=== PATIENT | male | born 1960 | race Caucasian/White ===

== ENCOUNTER 2018-11-20 05:57 | Day surgery (SDC) | payer OTHER ==
[~2018-11-20 05:57] MED LIST: CEFAZOLIN 2 GM/50 ML (PMX) 50 ML IVPB
[2018-11-20] MEDS: LACTATED RINGER'S 1,000 ML IV (07:24)
[2018-11-20] MEDS ORDERED: PROPOFOL 20 ML (07:29)
[2018-11-20] MEDS ORDERED: FENTAnyl 50 MCG/ML VIAL (07:29)
[2018-11-20] MEDS ORDERED: MIDAZOLAM 1 MG/ML 2 ML INJ (07:29)
[2018-11-20] MEDS: IOHEXOL 300MG/ML 30 ML BTL (08:02)
[2018-11-20] MEDS ORDERED: LABETALOL HCL 20MG INJ IV (08:30)
[2018-11-20] MEDS ORDERED: OXYCODONE/ACETAMINOPHEN (5/325) TAB PO (08:30)
[2018-11-20] MEDS ORDERED: HYDROmorphONE 1 MG/5 ML IV SYRINGE IV ×3 (08:30)
[2018-11-20] MEDS ORDERED: METOCLOPRAMIDE 10 MG INJ IV (08:30)
[2018-11-20] MEDS ORDERED: FENTAnyl 50 MCG/ML VIAL IV ×3 (08:30)
[2018-11-20] MEDS ORDERED: MEPERIDINE 25 MG INJ IV (08:30)
[2018-11-20] MEDS ORDERED: DIPHENHYDRAMINE 50 MG INJ IV (08:30)
[2018-11-20] MEDS ORDERED: EPHEDrine 25 MG/5 ML SYG IV (08:30)
[2018-11-20] MEDS ORDERED: ONDANSETRON 4 MG INJ IV (08:30)
[2018-11-20] MEDS ORDERED: hydrALAzine 20 MG INJ IV (08:30)
[2018-11-20] MEDS ORDERED: ROCURONIUM 50 MG INJ (08:44)
[2018-11-20] MEDS ORDERED: ONDANSETRON 4 MG INJ (08:44)
[2018-11-20] MEDS ORDERED: KETOROLAC 30 MG INJ (08:45)
[2018-11-20] MEDS ORDERED: SUGAMMADEX SODIUM 200 MG/2 ML VIAL IV (08:45)
[2018-11-20] MEDS ORDERED: METOCLOPRAMIDE 10 MG INJ (08:45)
[2018-11-20] MEDS ORDERED: DEXAMETHASONE 4 MG/ML 5 ML INJ (08:45)
== END 2018-11-20 10:27 | disposition home or self-care (01) ==
LOC: SDS 05:57
DX: N20.0 Calculus of kidney (principal); I10 Essential (primary) hypertension; E78.5 Hyperlipidemia, unspecified; Z79.82 Long term (current) use of aspirin
CPT/HCPCS: 52356

== ENCOUNTER 2019-01-01 08:28 | Day surgery (SDC) | payer OTHER ==
[2019-01-01] MEDS ORDERED: METOCLOPRAMIDE 10 MG INJ (10:30)
[2019-01-01] MEDS ORDERED: ALBUTEROL 0.083% (NEB) 2.5 MG/3 ML AMP HHN (10:30)
[2019-01-01] MEDS ORDERED: LABETALOL HCL 20MG INJ IV (10:30)
[2019-01-01] MEDS ORDERED: OXYCODONE/ACETAMINOPHEN (5/325) TAB PO (10:30)
[2019-01-01] MEDS ORDERED: DIPHENHYDRAMINE 50 MG INJ IV (10:30)
[2019-01-01] MEDS ORDERED: ONDANSETRON 4 MG INJ IV (10:30)
[2019-01-01] MEDS ORDERED: PROPOFOL 20 ML (10:30)
[2019-01-01] MEDS ORDERED: hydrALAzine 20 MG INJ IV (10:30)
[2019-01-01] MEDS ORDERED: KETOROLAC 30 MG INJ IV (10:30)
[2019-01-01] MEDS ORDERED: FENTAnyl 50 MCG/ML VIAL IV ×3 (10:30)
[2019-01-01] MEDS ORDERED: CEFAZOLIN 1 GM INJ (10:30)
[2019-01-01] MEDS ORDERED: MEPERIDINE 25 MG INJ IV (10:30)
[2019-01-01] MEDS ORDERED: HYDROmorphONE 1 MG/5 ML IV SYRINGE IV ×3 (10:30)
[2019-01-01] MEDS: OXYCODONE/ACETAMINOPHEN (5/325) TAB PO (12:14)
== END 2019-01-01 13:12 | disposition home or self-care (01) ==
LOC: SDS 08:28
DX: N20.0 Calculus of kidney (principal); I10 Essential (primary) hypertension; I25.10 Atherosclerotic heart disease of native coronary artery without angina pectoris; E03.9 Hypothyroidism, unspecified
CPT/HCPCS: 50590; 74430